=== PATIENT | male | born 1970 | race Hispanic/Latino ===

== ENCOUNTER → 2019-01-24 | Outpatient (CLI) | payer BC ==
--- NOTE | 2019-01-24 18:18 | Diagnostic Imaging Report ---
EXAMINATION: Scrotal ultrasound CLINICAL INDICATION: Chronic pain. COMPARISON: None.. TECHNIQUE: Grayscale and color Doppler evaluation of the scrotum was performed in transverse and longitudinal planes. FINDINGS: The right testicle measures 4. 4 x 1.8 x 2.9 cm. There are no masses or calcifications.. Normal vascularity. The right epididymis measures 0.9 x 0.6 x 0.6 cm. No nodules or masses.. Normal vascularity. Trace right hydrocele. No varicocele. There is normal arterial venous flow to the right testicle, without evidence of torsion. The left testicle measures 3.9 x 2.1 x 2.6 cm. There are no masses or calcifications.. Normal vascularity. The left epididymis measures 0.9 x 0.7 x 0.9 cm. No nodules or masses.. Normal vascularity. Trace left hydrocele . No varicocele. There is normal arterial and venous flow to the left testicle without evidence of torsion. The scrotum has a normal appearance, without focal lesions. No inguinal hernias are identified IMPRESSION: 1. Normal bilateral testicular size and echogenicity, without focal lesions. Normal arterial and venous flow in both testicles. 2. Trace bilateral hydroceles. Signed by: Dr. Eliazar Berg M.D. on 01/24/2019 6:14 PM
== END ==
LOC: US 16:22
PROVIDERS: ATTEND Urology
DX: G89.29 Other chronic pain (principal)
CPT/HCPCS: 76870